=== PATIENT | male | born 2000 | race Caucasian/White ===

== ENCOUNTER 2024-09-04 18:02 | Emergency (ER) | payer MEDICAID, SELFPAY ==
--- NOTE | 2024-09-04 18:09 | ED_ITS ---
HPI - Nausea/Vomiting/Diarrhea General Chief complaint: Abdominal Pain Stated complaint: Vomiting Time Seen by Provider: 09/04/24 23:30 Source: patient Mode of arrival: ambulatory Limitations: no limitations History of Present Illness ED Provider: charmaine WILLETT Narrative: Patient otherwise healthy comes here for nausea vomiting diarrhea for last 24 hours patient's father was with same last week no fever no chills diffuse abdominal cramping+ Related Data Allergies Allergy/AdvReac Type Severity Reaction Status Date / Time No Known Allergies Allergy Verified 09/04/24 18:13 Review of Systems 2 Review of Systems: Yes all other systems are reviewed and are negative [facility] Social History Social History Smoked in Last 30 Days: No Use of substances other than those prescribed or required for medical reasons: No Advance Directives: No Advance Directives Information Provided: No Do you have a plan to hurt others: No Plan Physical Exam 2 Vital Signs: Vital Signs: Last Vital Signs Temp 98.7 F 09/04/24 23:45 Pulse 93 09/04/24 23:45 Resp 16 09/04/24 23:45 BP 131/62 09/04/24 23:45 Pulse Ox 99 09/04/24 23:45 O2 Del Method Room Air 09/04/24 23:45 BMI result Body Mass Index 29.9 Appearance: Alert. Oriented X3. No acute distress. Eyes: No pallor or icterus ENT: Pharynx normal. Oral Mucosa moist Neck: Normal inspection. Neck supple. CVS: Normal heart rate and rhythm. Pulses normal. Respiratory: No respiratory distress. Equal air entry bilateral, no wheezing/rales/rhonchi Abdomen: Soft and nontender. Bowel sounds are present, no mass palpable, no CVA tenderness Skin: Skin warm and dry. Normal skin color. Normal skin turgor. Extremities: No lower extremity edema. No calf tenderness Neuro: Oriented X 3. No motor deficit. No sensory deficit.No cerebellar signs , cranial nerves II-XII intact Course Course Course Narrative: This is a Rapid Medical Exam performed in triage by Michelle Sloan PA-C. Full HPI, ROS and PE to be performed by primary ED provider. 24yo M presenting to the ED c/o abdominal pain, nausea, emesis x5 episodes x this morning. denies ? bad food exposure. +father with similar sx PE: abdomen soft w/lower ttp, no rebound or guarding Plan: Labs, UA Medications Administered Discontinued Medications Generic Name Dose Route Start Last Admin Trade Name Nery PRN Reason Stop Dose Admin Magnesium Sulfate 2 gm in 50 mls @ 25 mls/hr 09/04/24 19:45 09/04/24 23:40 Magnesium Sulfate/H2o IV 09/04/24 21:44 Infused ONCE ONE Infusion Loperamide HCl 2 mg 09/04/24 23:59 09/05/24 00:14 Loperamide Hcl 2 Mg Capsule PO 09/05/24 00:00 2 mg ONCE ONE Administration Ondansetron HCl 4 mg 09/04/24 23:59 09/05/24 00:14 Ondansetron Hcl 4 Mg/2 Ml Vial IVPUSH 09/05/24 00:00 4 mg ONCE ONE Administration Medical Decision Making Medical Decision Making MDM Narrative: Pick patient's magnesium was replaced other family member also sick with same likely viral gastroenteritis which does have Imodium and Zofran at home will discharge patient home patient is taking p.o. fluids feeling much better Lab Data MDM Lab Attestation statement: I reviewed the patient's lab results. 09/04/24 19:08 09/04/24 19:08 Labs: Lab Results 09/04/24 Range/Units 19:08 WBC 9.9 (4.8-10.8) X10*3/uL RBC 5.70 (4.60-5.80) X10*6/uL Hgb 16.6 (14.0-18.0) g/dl Hct 47.0 (42.0-52.0) % MCV 82.5 (80.0-98.0) fL MCH 29.1 (27.0-33.0) pg MCHC 35.3 (31.0-36.0) g/dl RDW 11.7 (11.0-16.0) % Plt Count 246 (160-400) X10*3/uL MPV 8.5 L (9.4-12.4) fL Immature Gran % (Auto) 0.4 (0.0-0.4) % Neut % (Auto) 91.6 H (45-73) % Lymph % (Auto) 4.4 L (20-40) % [place] % (Auto) 3.0 (2-11) % Eos % (Auto) 0.2 (0-4) % Baso % (Auto) 0.4 (0-2) % Lymph # (Auto) 0.4 L (1.2-4.9) X10*3/uL [place] # (Auto) 0.3 (0.1-1.2) X10*3/uL Eos # (Auto) 0.0 (0.0-0.4) X10*3/uL Baso # (Auto) 0.0 (0.0-0.2) X10*3/uL Abs Immat Gran (auto) 0.04 H (0.00-0.03) X10*3/uL Absolute Neuts (auto) 9.1 H (2.0-8.3) x10*3/uL Absolute Nucleated RBC 0.000 (0.0-0.012) X10*3/uL Nucleated RBC % (auto) 0.0 (0.0-0.2) /100WBC Smear Tech's Comments VERIFIED Sodium 131 L (135-145) mmol/L Potassium 3.9 (3.3-5.1) mmol/L Chloride 100 (96-108) mmol/L Carbon Dioxide 21 L (22-29) mmol/L Anion Gap 14 (12-20) BUN 12 (9-16) mg/dL Creatinine 0.92 (0.5-1.4) mg/dL Estim Creat Clear Calc 131.9 Estimated GFR > 60 Random Glucose 118 H (60-115) mg/dL Calcium 9.3 (8.4-10.2) mg/dL Magnesium 1.4 L* (1.6-2.6) mg/dL Total Bilirubin 0.7 (0.0-1.0) mg/dL Direct Bilirubin 0.3 (0.0-0.5) mg/dL AST 27 (5-37) U/L ALT 61 H (0-40) U/L Alkaline Phosphatase 84 (39-117) U/L Total Protein 7.0 (6.5-8.0) g/dL Albumin 4.2 (3.5-5.0) g/dL Lipase 33 (8-78) U/L Influenza Type A (PCR) NEGATIVE (Negative) Influenza Type B (PCR) NEGATIVE (Negative) RSV RNA Qual (PCR) NEGATIVE (Negative) SARS-CoV-2 RNA (RT-PCR) NEGATIVE (Negative) Discharge Plan Discharge Clinical Impression: Gastroenteritis Patient Disposition: Home, Self-Care Instructions: Gastroenteritis (ED) Additional Instructions: Drink plenty of fluids Zofran for nausea as advised Imodium for severe diarrhea as needed Print Language: Liberian
[2024-09-04 18:10] VITALS: BP 116/65; PULSE 100; RESP 18; TEMP 36.8; O2SAT 97; BMI 29.9
[2024-09-04 19:21] LABS: Basophils Percent Auto 0.4 % (0-2); Eosinophils Percent Auto 0.2 % (0-4); Hemoglobin 16.6 g/dl (14.0-18.0); Imm Gran Abs Auto 0.04 X10*3/uL (0.00-0.03); Imm Gran Pct Auto 0.4 % (0.0-0.4); Lymphocytes Absolute Auto 0.4 X10*3/uL (1.2-4.9); Lymphocytes Percent Auto 4.4 % (20-40); MANUAL DIFF FLAG SCAN; Mean Corpuscular HGB Conc 35.3 g/dl (31.0-36.0); Mean Corpuscular Hemoglobin 29.1 pg (27.0-33.0); Mean Corpuscular Volume 82.5 fL (80.0-98.0); Mean Platelet Volume 8.5 fL (9.4-12.4); Monocytes Absolute Auto 0.3 X10*3/uL (0.1-1.2); Neutrophils Absolute Auto 9.1 x10*3/uL (2.0-8.3); Neutrophils Percent Auto 91.6 % (45-73); Platelet Count 246 X10*3/uL (160-400); Red Cell Distribution Width 11.7 % (11.0-16.0); SCAN SMEAR FLAG 1; White Blood Count 9.9 X10*3/uL (4.8-10.8)
[2024-09-04 19:42] LABS: SLIDE REVIEW VERIFIED
[2024-09-04 19:46] LABS: Alanine Aminotransferase 61 U/L (0-40); Albumin Level 4.2 g/dL (3.5-5.0); Alkaline Phosphatase 84 U/L (39-117); Anion Gap 14 (12-20); Aspartate Amino Transferase 27 U/L (5-37); Bilirubin Direct 0.3 mg/dL (0.0-0.5); Bilirubin Total 0.7 mg/dL (0.0-1.0); Blood Urea Nitrogen 12 mg/dL (9-16); Calcium 9.3 mg/dL (8.4-10.2); Carbon Dioxide 21 mmol/L (22-29); Chloride 100 mmol/L (96-108); Creatinine Clr Calc Pharmacy 131.9; Estimated Glomerular Filt Rate > 60; Glucose Random 118 mg/dL (60-115); Lipase 33 U/L (8-78); Magnesium 1.4 mg/dL (1.6-2.6); Potassium 3.9 mmol/L (3.3-5.1); Sodium 131 mmol/L (135-145)
[2024-09-04 19:56] LABS: Influenza A PCR NEGATIVE (Negative); Influenza B PCR NEGATIVE (Negative); Resp Syncy Virus RNA Qual PCR NEGATIVE (Negative); SARS COV2 PCR INHOUSE NEGATIVE (Negative)
[2024-09-04 20:00] VITALS: BP 116/72; PULSE 98; RESP 18; TEMP 37.1; O2SAT 99
[2024-09-04 22:00] VITALS: BP 132/75; PULSE 89; RESP 18; TEMP 36.9; O2SAT 100
[2024-09-04] MEDS: Magnesium Sulfate/H2O 2 GM/50 ML PIGGYBACK IV (22:04)
--- NOTE | 2024-09-04 22:11 | PC.NURSE ---
pt ambulated from waiting room with steady gait. pt a&ox4, respirations even and unlabored, vss. pt reports abdominal pain, nausea, and diarrhea since 10am this morning. pt reports loose stools several times and 5 episodes of emesis today. active bowel sounds in all 4 quadrants, pt rates abdominal pain 05/17. 18g placed in R ac, pt medicated per jan.
[2024-09-04 23:45] VITALS: BP 131/62; PULSE 93; RESP 16; TEMP 37.1; O2SAT 99
[2024-09-05] MEDS: ondansetron HCL 4 MG/2 ML VIAL IVPUSH (00:14)
[2024-09-05] MEDS: Loperamide HCl 2 MG CAPSULE PO (00:14)
--- NOTE | 2024-09-05 00:16 | PC.NURSE ---
pt medicated per mar for nausea and diarrhea. pt tolerated well with water.
[2024-09-05 01:01] VITALS: BP 131/62; PULSE 93; RESP 16; TEMP 37.1; O2SAT 99
== END 2024-09-05 01:02 | disposition home or self-care (01) ==
PROVIDERS: Physician Assistant; Emergency Provider Internal Medicine; PCP Family Medicine
DX: K52.9 Noninfective gastroenteritis and colitis, unspecified (principal); R11.2 Nausea with vomiting, unspecified; Z03.818 Encounter for observation for suspected exposure to other biological agents ruled out
CPT/HCPCS: 0241U; 80048; 80076; 83690; 83735; 85025; 96365; 96366; 96375; 99284; J2405; J3475